=== PATIENT | female | born 2000 | race American Indian/Alaskan Native ===

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

== ENCOUNTER 2021-04-28 02:20 | Emergency (ER) | payer MEDICAID ==
[2021-04-28 02:27] VITALS: BP 132/90
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
[2021-04-28] MEDS ORDERED: IBUPROFEN 600 MG TAB PO ONE (03:44)
[2021-04-28] MEDS ORDERED: HYDROcodone/ACETAMINOPHEN 5-325 MG TAB PO ONE (03:44)
== END 2021-04-28 03:55 | disposition home or self-care (01) ==
LOC: ED 02:20
DX: S61.211A Laceration without foreign body of left index finger without damage to nail, initial encounter (principal); W26.0XXA Contact with knife, initial encounter; Y93.89 Activity, other specified; Y92.89 Other specified places as the place of occurrence of the external cause; Y99.8 Other external cause status

== ENCOUNTER 2021-07-04 16:12 | Emergency (ER) | payer MEDICAID ==
[2021-07-04] MEDS ORDERED: traMADol 50 MG TAB PO ONE (21:19)
[2021-07-04] MEDS ORDERED: LET TOPICAL (LIDOCAINE/EPINEPHRINE/TETRACAINE) 3 ML TP ONE (21:19)
[2021-07-04] MEDS ORDERED: IBUPROFEN 400 MG TAB PO ONE (21:19)
[2021-07-04] MEDS ORDERED: NEOMY 3.5 MG/BACIT 400 UNITS/POLY B 5000 UNITS/GM OINT PACKET TP ONE (21:19)
[2021-07-04] MEDS ORDERED: ONDANSETRON 4 MG ODT TAB PO ONE (21:20)
--- NOTE | 2021-07-04 22:20 | Emergency Department Report ---
- General Chief Complaint: Wound/Laceration Stated Complaint: TOE CUT Source: patient Mode of arrival: Ambulatory Limitations: No Limitations - History of Present Illness Initial Comments: Patient is a 20-year-old -[place] female with a history of anxiety and depression who presents to the ED with complaint of acute onset persistent painful bleeding left fifth toe laceration and abrasion wound after a sharp edge of an open can accidentally cut her left small toe causing significant abrasions bleeding about 8 hours ago. Patient states that the bleeding is well controlled at this time. Patient states that she is up-to-date with all her tetanus vaccinations. Patient denies numbness and tingling or weakness of left foot, fall, nausea and vomiting, back pain, hip pain, loss of consciousness or dizziness. -: Sudden, hour(s) (8) Extremity Location: Left: Foot (Left small toe abrasion wound) Place: home Patient Tetanus UTD: Yes Context: accidental Associated Symptoms: pain. denies: loss of feeling/numbness, suspect foreign body present, unable to move injured part, weakness followed by dizziness, nausea/vomiting, fever Treatments Prior to Arrival: bandage - Related Data Previous Rx's Medication Instructions Recorded Last Taken Type Ibuprofen [Motrin] 400 mg PO Q8H PRN #20 tablet 07/04/21 Unknown Rx cephALEXin [Keflex] 500 mg PO Q12HR #14 cap 07/04/21 Unknown Rx Allergies Allergy/AdvReac Type Severity Reaction Status Date / Time No Known Allergies Allergy Verified 07/08/16 02:17 ED Review of Systems ROS: Stated complaint: TOE CUT Other details as noted in HPI Constitutional: denies: chills, fever Eyes: denies: eye pain, eye discharge, vision change ENT: denies: ear pain, throat pain Respiratory: denies: cough, shortness of breath, wheezing Cardiovascular: denies: chest pain, palpitations Endocrine: no symptoms reported Gastrointestinal: denies: abdominal pain, nausea, diarrhea Genitourinary: denies: urgency, dysuria, discharge Musculoskeletal: arthralgia (Left foot and left fifth toe pain due to bleeding abrasion wound). denies: back pain, joint swelling Skin: other (Bleeding abrasion wound left fifth toe). denies: rash, lesions Neurological: denies: headache, weakness, paresthesias Psychiatric: denies: anxiety, depression Hematological/Lymphatic: denies: easy bleeding, easy bruising ED Past Medical Hx - Past Medical History Hx Psychiatric Treatment: Yes (Suicidal) Additional medical history: LEARNING DISABILITY, Was being treated for psych issues earlier. - Social History Smoking Status: Unknown if ever smoked Substance Use Type: None - Medications Home Medications: Home Medications Medication Instructions Recorded Confirmed Last Taken Type Ibuprofen [Motrin] 400 mg PO Q8H PRN #20 tablet 07/04/21 Unknown Rx cephALEXin [Keflex] 500 mg PO Q12HR #14 cap 07/04/21 Unknown Rx ED Physical Exam - General Limitations: No Limitations General appearance: alert, in no apparent distress - Head Head exam: Present: atraumatic, normocephalic, normal inspection - Eye Eye exam: Present: normal appearance, PERRL, EOMI Pupils: Present: normal accommodation - ENT ENT exam: Present: normal exam, normal orophraynx, mucous membranes moist, TM's normal bilaterally, normal external ear exam - Neck Neck exam: Present: normal inspection, full ROM. Absent: tenderness - Respiratory Respiratory exam: Present: normal lung sounds bilaterally. Absent: respiratory distress, wheezes, rales, rhonchi, chest wall tenderness, accessory muscle use, decreased breath sounds - Cardiovascular Cardiovascular Exam: Present: regular rate, normal rhythm, normal heart sounds. Absent: systolic murmur, diastolic murmur, rubs, gallop - GI/Abdominal GI/Abdominal exam: Present: soft, normal bowel sounds. Absent: tenderness, guarding, rebound, hyperactive bowel sounds, hypoactive bowel sounds, organomegaly, mass - Extremities Exam Extremities exam: Present: normal inspection, full ROM, tenderness (Palpable left fifth toe tenderness due to a small abrasion wound), normal capillary refill. Absent: pedal edema, joint swelling - Back Exam Back exam: Present: normal inspection, full ROM. Absent: tenderness, CVA tenderness (R), CVA tenderness (L), muscle spasm, paraspinal tenderness, vertebral tenderness - Neurological Exam Neurological exam: Present: alert, oriented X3, CN II-XII intact, normal gait, reflexes normal - Psychiatric Psychiatric exam: Present: normal affect, normal mood, anxious - Skin Skin exam: Present: warm, dry, intact, normal color, abrasion (Small abrasion wound between the left fifth toe and fourth toe with localized tenderness). Absent: rash ED Course Vital Signs 07/04/21 07/04/21 07/04/21 16:54 16:56 21:29 Temperature 98.8 F Pulse Rate 69 Respiratory 16 16 Rate Blood Pressure 116/68 Blood Pressure 116/68 [Right] O2 Sat by Pulse 98 Oximetry 07/04/21 21:30 Temperature Pulse Rate Respiratory 16 Rate Blood Pressure Blood Pressure [Right] O2 Sat by Pulse Oximetry ED Medical Decision Making - Medical Decision Making This is a 20-year-old -[place] female with a history of anxiety and depression who presents to the ED with complaint of acute onset persistent painful bleeding left fifth toe laceration and abrasion wound after a sharp edge of an open can accidentally cut her left small toe causing significant abrasions bleeding about 8 hours ago. Patient states that the bleeding is well controlled at this time. Patient states that she is up-to-date with all her tetanus vaccinations. In the ED, patient is alert and oriented x3 and is not in any distress. Patient was treated for pain in the ED. The wound was cleaned extensively normal saline and let gel solution was applied to the site. When anesthesia was fully achieved, the wound was rinsed with normal saline and Neosporin ointment applied. The wound was then dressed appropriately and the patient was discharged home on medications for pain and prophylactic antibiotics. Patient was advised to follow-up with her primary care physician in 7 to 10 days for reevaluation or return to the ED immediately if symptoms get worse. - Differential Diagnosis Abrasion; contusion; avulsion wound; laceration; Critical care attestation.: If time is entered above; I have spent that time in minutes in the direct care of this critically ill patient, excluding procedure time. ED Disposition Clinical Impression: Abrasion of fifth toe, left Qualifiers: Encounter type: initial encounter Qualified Code(s): S90.415A - Abrasion, left lesser toe(s), initial encounter Contusion of left foot including toes Qualifiers: Encounter type: initial encounter Qualified Code(s): S90.32XA - Contusion of left foot, initial encounter; S90.122A - Contusion of left lesser toe(s) without damage to nail, initial encounter Disposition: 01 HOME / SELF CARE / HOMELESS Is pt being admited?: No Does the pt Need Aspirin: No Condition: Stable Instructions: Foot Contusion, [id number], Abrasion, [id number] Additional Instructions: Take medication with food, drink plenty of fluids and follow-up with your [facility] care physician in 7 to 10 days for reevaluation. Return to the ED immediately if symptoms get worse. Prescriptions: cephALEXin [Keflex] 500 mg PO Q12HR #14 cap Ibuprofen [Motrin] 400 mg PO Q8H PRN #20 tablet PRN Reason: Pain , Severe (7-10) Referrals: [facility] [Provider Group] - 7-10 days Time of Disposition: 22:23 Print Language: KOREAN
[2021-07-04 23:58] VITALS: BP 116/82
== END 2021-07-04 23:00 | disposition home or self-care (01) ==
LOC: ED 16:12
DX: S90.32XA Contusion of left foot, initial encounter (principal); S90.415A Abrasion, left lesser toe(s), initial encounter; W26.8XXA Contact with other sharp object(s), not elsewhere classified, initial encounter; Y93.89 Activity, other specified; Y92.89 Other specified places as the place of occurrence of the external cause; Y99.8 Other external cause status
CPT/HCPCS: 99282; 99283; J3490; Q0162